=== PATIENT | female | born 1985 | race Caucasian/White ===

== ENCOUNTER → 2016-03-30 | Outpatient (REF) | payer BC | END | disposition home or self-care (01) | LOC: M LAB REF 16:57 | PROVIDERS: ATTEND Obstetrics & Gynecology | DX: Z34.83 Encounter for supervision of other normal pregnancy, third trimester (principal); Z36 Encounter for antenatal screening of mother; Z3A.00 Weeks of gestation of pregnancy not specified ==

== ENCOUNTER 2016-04-21 09:26 | Inpatient (IN) | payer BC ==
[~2016-04-21] VITALS: Ht 170.2 cm; Wt 67.0 kg
[2016-04-21] VITALS (31 sets, daily range): BP systolic 91–125; BP diastolic 50–70
[2016-04-21] MEDS ORDERED: miSOPROStol 50 MCG 1/2 TAB (S0191) PO SCH (11:00)
[2016-04-21 11:50] LABS: MEAN CORPUSCULAR HGB CONC 33.5 g/dl (32.0-36.5); MEAN CORPUSCULAR VOLUME 83.4 fl (80.0-96.0); RED CELL DISTRIBUTION WIDTH 13.3 % (11.5-14.5); WHITE BLOOD COUNT 8.7 K/mm3 (4.0-10.0)
[2016-04-21] MEDS ORDERED: FENTANYL 2MCG/ML ROPIVACAINE 0.2% NACL 250 ML CADD As Ordered ONE (13:11)
[2016-04-21] MEDS ORDERED: EPIDURAL COMMENT XX SCH (16:00)
[2016-04-21] MEDS ORDERED: FENTANYL/ROPIVACAINE/NACL CADD 250 ML EPIDURAL SCH (16:00)
[2016-04-21] MEDS ORDERED: diphenhydrAMINE INJ 50MG/ML VIAL (J1200) IV PRN (16:00)
[2016-04-21] MEDS ORDERED: ONDANSETRON 4MG/2ML VIAL (J2405) IV PRN (16:00)
[2016-04-21] MEDS ORDERED: REFRIGERATOR IV KEYS XX PRN (16:00)
[2016-04-21] MEDS ORDERED: NALOXONE INJ 0.4 MG/1 ML VIAL (J2310) IV PRN (16:00)
[2016-04-21] MEDS ORDERED: EPIDURAL/PCA KEYS XX PRN (16:00)
[2016-04-21] MEDS ORDERED: OXYTOCIN DRIP 30 UNITS in APPROPRIATE DILUENT 1 EA IV SCH ×2 (16:30→19:06)
[2016-04-21] MEDS ORDERED: LR 1,000 ML IV SCH (16:30)
[2016-04-21] MEDS ORDERED: DOCUSATE SODIUM 100 MG CAP PO PRN (19:15)
[2016-04-21] MEDS ORDERED: RHOGAM 300 MCG (1500 IU) INJ (J2790) IM SCH (19:15)
[2016-04-21] MEDS ORDERED: METHYLERGONOVINE MALEATE 0.2 MG TAB PO PRN (19:15)
[2016-04-21] MEDS ORDERED: IBUPROFEN 800 MG TAB PO PRN (19:15)
[2016-04-21] MEDS ORDERED: MOM 30ML SUSPENSION UDC PO PRN (19:15)
[2016-04-21] MEDS ORDERED: DIBUCAINE 1% OINTMENT 30GM TOP PRN (19:15)
[2016-04-21] MEDS ORDERED: ACETAMINOPHEN 500 MG TAB PO PRN (19:15)
[2016-04-21] MEDS ORDERED: MEASLES,MUMPS,RUBELLA VACCINE INJ (MMR-II) (90707) SC SCH (19:15)
--- NOTE | 2016-04-21 19:16 | HPE ---
DATE OF ADMISSION: 04/21/2016 REASON FOR ADMISSION: Induction of labor. HISTORY OF PRESENT ILLNESS: This patient is a 31-year-old 4, para 3, who presents at 39 weeks, two days estimated gestational age by last menstrual period confirmed by first-trimester ultrasound, for induction of labor. course has been remarkable for well-controlled A1 gestational diabetes. She initiated care in the first trimester and has been appropriate throughout. PAST MEDICAL HISTORY: None. PAST SURGICAL HISTORY: She has had a cholecystectomy and oral surgery. PAST OBSTETRICAL HISTORY: She is 4, para 3. She is proven to 7 pounds 15 ounces. She has had three term vaginal deliveries. MEDICATIONS: vitamins. ALLERGIES: SULFA and ADHESIVE TAPE. SOCIAL HISTORY: Denies any alcohol, tobacco or drug use in her . She lives at home with her and three children. PHYSICAL EXAMINATION: VITAL SIGNS: Stable. She is afebrile. She has a category one heart tracing. No contractions on tocometer. GENERAL APPEARANCE: She is well appearing, in no acute distress. CARDIOVASCULAR: Heart regular rate and rhythm. LUNGS: Clear to auscultation bilaterally. ABDOMEN: Soft, gravid, nontender. Estimated weight (EFW) 3500 grams. CERVICAL EXAM: She is 2, 75% effaced, -3 station. LABORATORY DATA: Blood type is O positive. Antibody screen negative. Rubella immune. RPR is nonreactive. Hepatitis surface antigen is negative. HIV is negative. Hepatitis C was nonreactive. Chlamydia and gonorrhea screens are negative. She had an elevated one-hour Glucola with an abnormal glucose tolerance test. She is GBS negative. ASSESSMENT: 1. This patient is a 31-year-old 4, para 3, at 39 weeks 2 days estimated gestational age, here for induction of labor. 2. A1 gestational diabetes. 3. Reassuring status. PLAN: 1. Admit to labor and delivery. Complete blood count (CBC), rapid plasma reagin (RPR), type and screen. 2. The patient was counseled on induction of labor. Discussed medications, as well as procedures performed in labor and delivery. She has also been verbally consented for emergency surgery, blood products, and anesthesia, and desires to proceed with above. 3. Plan to initiate induction with oral misoprostol 50 mcg.
--- NOTE | 2016-04-21 19:27 | DN ---
DATE OF DELIVERY: 04/21/2016 TIME OF : 1837 hours GENDER: Male. : 9 and 9. WEIGHT: 3492 grams, 7 pounds 11 ounces. ANESTHESIA: Epidural. LACERATIONS: First degree midline laceration. COUNTS: 5 laparotomy sponges accounted for prior and after delivery. 1 sharp removed from the delivery field. ESTIMATED BLOOD LOSS: 300 mL. DELIVERY NOTE: On the April, at 1837 hours this patient, a 31-year-old 4, now para 4 had a 4 had a spontaneous vaginal delivery of a live born male , Apgars 9 and 9, weight 3492 grams, 7 pounds 11 ounces. Head was delivered left occiput anterior (HEIKE). There was a nuchal cord which was manually reduced, followed by delivery of right anterior shoulder, left posterior shoulder, and corpus. was handed to mother with a good cry. Cord was clamped times two and was cut. Cord blood was obtained. Placenta was then drained and delivered grossly intact. A premixed bag of 500 mL of normal saline with 30 units of pitocin was bolused along with uterine massage. The uterus was firm. There was a first degree midline laceration on inspection, which was repaired with #3-0 Vicryl Ripide. On reinspection the cervix, vagina and perineum was grossly intact and hemostatic. Mother and baby recovered in stable condition. The couple has decided to name their son Frederic Browne.
[2016-04-22 06:39] VITALS: BP 116/67
[2016-04-22] MEDS: PRENATAL VITAMIN TAB PO SCH (09:00)
[2016-04-23 06:00] VITALS: BP 121/76
[2016-04-23] MEDS: PRENATAL VITAMIN TAB PO SCH (09:00)
[2016-04-23] MEDS ORDERED: MOTR200T44 PO (10:25)
[2016-04-23] MEDS ORDERED: TYLE500T78 PO (10:25)
[2016-04-23] MEDS ORDERED: PREN1PAK2 PO (10:25)
[2016-04-23] MEDS ORDERED: MILKSUS PO (10:25)
== END 2016-04-23 16:20 | disposition home or self-care (01) | DRG 560 ==
LOC: M LDI 09:26 → M OBS 21:30
PROVIDERS: ADMIT Obstetrics & Gynecology; ATTEND Obstetrics & Gynecology
PROC: 10E0XZZ Delivery of Products of Conception, External Approach (ICD-10-PCS; principal; 2016-04-21)
PROC: 0HQ9XZZ Repair Perineum Skin, External Approach (ICD-10-PCS; 2016-04-21)
PROC: 3E0P7GC Introduction of Other Therapeutic Substance into Female Reproductive, Via Natural or Artificial Opening (ICD-10-PCS; 2016-04-21)
DX: O24.420 Gestational diabetes mellitus in childbirth, diet controlled (principal); O69.81X0 Labor and delivery complicated by cord around neck, without compression, not applicable or unspecified; Z3A.39 39 weeks gestation of pregnancy; O70.0 First degree perineal laceration during delivery; Z37.0 Single live birth